=== PATIENT | male | born 1980 | race Asian ===

== ENCOUNTER 2018-07-20 11:18 | Emergency (ER) | payer OTHER ==
--- NOTE | 2018-07-20 12:32 | RAD ---
INDICATION: Laceration to distal right middle finger after crush injury. COMPARISON: None. TECHNIQUE: 3 views of the right middle finger were obtained. FINDINGS: There is evidence of soft tissue injury at the distal tip of the right middle finger. On the oblique view the ulnar aspect tuft of the right middle finger appears to be fractured and slightly from the bone. There is no radiographically visible subcutaneous foreign body. IMPRESSION: POSSIBLE SLIGHTLY DISPLACED RIGHT MIDDLE FINGER DISTAL TUFT FRACTURE.
[2018-07-20] MEDS ORDERED: Tetan/Diph/Pertus SYR(Tdap)* 0.5 ML SYR(BOOSTRIX) use SYR IM ONE (12:39)
[2018-07-20] MEDS ORDERED: Lidocaine 1%* 5 ML VIAL INJ ONE (12:40)
--- NOTE | 2018-07-20 12:44 | ED ---
Laceration/Wound HPI - HPI Summary HPI Summary: Patient is a 38-year-old female who presents emergency department for crush injury to right middle digit of hand that occurred today. Patient's friend is present with him and is interpreting. Reportedly patient was at work just prior to arrival when his finger was just with a heavy piece of wood. No other injuries sustained. Patient has no significant past medical history. Pt. reportedly is not vaccinated. Symptoms are mild in severity. Touching finger makes symptoms worse. Rest makes symptoms better. 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 Pain Intensity: 7 - Allergy/Home Medications Allergies/Adverse Reactions: Allergies Allergy/AdvReac Type Severity Reaction Status Date / Time No Known Allergies Allergy Verified 07/20/18 11:28 PMH/Surg Hx/FS Hx/Imm Hx Previously Healthy: Yes - Immunization History Immunizations Up to Date: Unable to Obtain/Confirm Infectious Disease History: No Infectious Disease History: Denies: Traveled Outside the [place] in Last 30 Days - Family History Known Family History: Positive: Other - noncontributory - Social History Occupation: Employed Full-time Lives: With Family Alcohol Use: Daily Substance Use Type: Reports: None Smoking Status (MU): Current Every Day Smoker Review of Systems Positive: Other - Pain and swelling to right 3rd digit of hand. Positive: Other - Finger laceration 3rd right digit All Other Systems Reviewed And Are Negative: Yes Physical Exam Triage Information Reviewed: Yes Vital Signs On Initial Exam: Initial Vitals Temp Pulse Resp BP Pulse Ox 98.7 F 83 16 148/92 97 07/20/18 11:29 07/20/18 11:29 07/20/18 11:29 07/20/18 11:29 07/20/18 11:29 Vital Signs Reviewed: Yes Appearance: Positive: Well-Appearing - Pt. sitting in chair in NAD. Friend present. Skin: Positive: Warm, Dry Head/Face: Positive: Normal Head/Face Inspection Eyes: Positive: Normal, EOMI Musculoskeletal: Positive: Other - 1cm linear laceration noted to the distal aspect of the 3rd digit on right hand on the palmar aspect. Distal aspect of digit is edematous and painful. No damage to nail. Full ROM of digit-flexiou tendon intact. Neurological: Positive: Normal, CN Intact II-III Psychiatric: Positive: Affect/Mood Appropriate Procedures - Splinting Right 3rd Digit Pre-Made Type: finger spint Pre-Proc Neuro Vasc Exam: normal Post-Proc Neuro Vasc Exam: normal - Laceration/Wound Repair 1 Location: upper extremity Description: Linear Anesthesia: Local, 1.0% - 1cc Length, Depth and Shape: 1cm linear Betadine Prep?: No - hibiclens Irrigated w/ Saline (ccs): 250 Laceration/Wound Explored: clean Suture Type: Nylon - 4-0 Number of Sutures: 4 Layer Closure?: No Sterile Dressing Applied?: Yes Diagnostics - Vital Signs Vital Signs Temp Pulse Resp BP Pulse Ox 07/20/18 11:29 98.7 F 83 16 148/92 97 - Laboratory Lab Statement: Any lab studies that have been ordered have been reviewed, and results considered in the medical decision making process. Laceration Repair Course/Dx - Course Course Of Treatment: Pt. presenting with crush injury to finger. Tetanus was updated. Laceration was sutured as noted above. X-ray shows questionable distal tuft fracture, based on exam suspect there is a fracture. Will place on Keflex for open fracture. Advised to follow-up in orthopedic clinic for reevaluation. Finger splint placed. Suture removal in 7-10 days. Keep the wound clean and dry. Ice and elevate. Tylenol or Motrin for pain as directed. To return to the ER for redness, swelling or drainage from wound. Patient understands and agrees with plan. - Clinical Impression Provider Diagnoses: Open fracture, Finger fracture, Crush injury to finger Discharge - Sign-Out/Discharge Documenting (check all that apply): Patient Departure - Discharge Plan Condition: Good Disposition: HOME Prescriptions: Cephalexin CAP* [Keflex CAP*] 500 mg PO BID #20 cap Patient Education Materials: Care For Your Stitches (ED), Finger Fracture (ED) Forms: *Work Release Referrals: No Primary Care Phys,NOPCP [Primary Care Provider] - [facility] [Outside] Faith Roe MD [Medical Doctor] - Additional Instructions: Schedule a follow up appointment with orthopedics, Dr. Roe Suture removal in 7-10 days Ice and elevate finger intermittently Tylenol or Motrin for pain as directed Return to ER for redness, swelling, or drainage from wound - Billing Disposition and Condition Condition: GOOD Disposition: Home
[2018-07-20 13:42] VITALS: BP 142/80
== END 2018-07-20 13:41 | disposition home or self-care (01) ==
LOC: ED 11:18
DX: S67.192A Crushing injury of right middle finger, initial encounter (principal); S62.632A Displaced fracture of distal phalanx of right middle finger, initial encounter for closed fracture; W22.8XXA Striking against or struck by other objects, initial encounter; Y92.9 Unspecified place or not applicable; F17.200 Nicotine dependence, unspecified, uncomplicated; Z23 Encounter for immunization
CPT/HCPCS: 12001; 73140; 90471; 90715; 99282

== ENCOUNTER 2018-07-29 10:52 | Emergency (ER) | payer OTHER ==
[2018-07-29 11:21] VITALS: BP 124/86
--- NOTE | 2018-07-29 12:04 | UC ---
Laceration HPI - HPI Summary HPI Summary: 38 yo male presents for sure removal. He had four sutures placed to his right middle finger on 07/20 in the ED. He has no issues as far as pain, fever, redness , drainage, or swelling. - History Of Current Complaint Chief Complaint: UCWounds Stated Complaint: SUTURE REMOVAL Time Seen by Provider: 07/29/18 11:58 Hx Obtained From: Patient Laceration Location: Finger Mechanism Of Injury: Sharp Trauma Onset/Duration: Sudden Onset Severity: Mild Pain Intensity: 4 Pain Scale Used: 0-10 Numeric - Allergies/Home Medications Allergies/Adverse Reactions: Allergies Allergy/AdvReac Type Severity Reaction Status Date / Time No Known Allergies Allergy Verified 07/29/18 11:21 PMH/Surg Hx/FS Hx/Imm Hx - Additional Past Medical History Additional PMH: None - Surgical History Surgical History: None - Family History Known Family History: Positive: None - Social History Occupation: Employed Full-time Lives: With Family Alcohol Use: Daily Substance Use Type: Other Substance Use Comment - Amount & Last Used: BN use Smoking Status (MU): Current Every Day Smoker Have You Smoked in the Last Year: Yes Household Exposure Type: Cigarettes Review of Systems Constitutional: Negative Skin: Other - 4 sutures in placed right middle finger Respiratory: Negative Cardiovascular: Negative Neurovascular: Negative Musculoskeletal: Negative Neurological: Negative Psychological: Negative All Other Systems Reviewed And Are Negative: Yes Physical Exam - Summary Physical Exam Summary: GENERAL: NAD. WDWN. No pain distress. SKIN: Right middle finger: Distal finger pad with 4 nylon sutures in placed. Well approximated and healed. No erythema or edema. No streaking, bleeding, or drainage. CHEST: No accessory muscle use. Breathing comfortably and in no distress. CV: Pulses intact. Cap refill <2seconds NEURO: Alert. PSYCH: Age appropriate behavior. Triage Information Reviewed: Yes Vital Signs: Initial Vital Signs Temp 99.1 F 07/29/18 11:17 Pulse 90 07/29/18 11:17 Resp 18 07/29/18 11:17 BP 124/86 07/29/18 11:17 Pulse Ox 98 07/29/18 11:17 Laceration Course/Dx - Course/Dx Course Of Treatment: Sutures removed without difficulty. Pt tolerated well. - Differential Dx - Laceration/Wound Provider Diagnoses: Suture removal Discharge - Sign-Out/Discharge Documenting (check all that apply): Patient Departure All imaging exams completed and their final reports reviewed: No Studies - Discharge Plan Condition: Stable Disposition: HOME Patient Education Materials: Stitches Removal (ED) Referrals: No Primary Care Phys,NOPCP [Primary Care Provider] - Additional Instructions: If you develop a fever, shortness of breath, chest pain, new or worsening symptoms - please call your PCP or go to the ED. - Billing Disposition and Condition Condition: STABLE Disposition: Home
== END 2018-07-29 12:10 | disposition home or self-care (01) ==
LOC: UCEAST 10:52
DX: S61.212D Laceration without foreign body of right middle finger without damage to nail, subsequent encounter (principal); X58.XXXD Exposure to other specified factors, subsequent encounter; F17.210 Nicotine dependence, cigarettes, uncomplicated